=== PATIENT | female | born 1995 | race American Indian/Alaskan Native ===

== ENCOUNTER 2016-11-09 07:50 | Emergency (ER) | payer BC ==
[2016-11-09] MEDS ORDERED: NORCO 5/325 PO ONE (09:28)
[2016-11-09 10:00] LABS: Basophils % (Auto) 0.4 % (0.0-1.8); Eosinophils % (Auto) 1.1 % (0.0-4.3); Hematocrit 40.9 % (30.3-42.9); Hemoglobin 13.7 gm/dl (10.1-14.3); Mean Corpuscular HGB Conc 34 % (30-34); Mean Corpuscular Hemoglobin 30 pg (28-32); Mean Corpuscular Volume 89 fl (79-97); Platelet Count 292 K/mm3 (140-440); Red Blood Count 4.58 M/mm3 (3.65-5.03); Red Cell Distribution Width 13.4 % (13.2-15.2); White Blood Count 8.8 K/mm3 (4.5-11.0)
[2016-11-09 10:16] LABS: Alanine Aminotransferase 181 units/L (7-56); Albumin 3.7 g/dL (3.9-5); Alkaline Phosphatase 64 units/L (35-129); Anion Gap 16 mmol/L; Bilirubin,Total 0.5 mg/dL (0.1-1.2); Blood Urea Nitrogen 10 mg/dL (7-17); Calcium 8.7 mg/dL (8.4-10.2); Carbon Dioxide 26 mmol/L (22-30); Chloride 96.8 mmol/L (98-107); Glucose 101 mg/dL (65-100); Potassium 4.3 mmol/L (3.6-5.0); Sodium 134 mmol/L (137-145); Total Protein 7.4 g/dL (6.3-8.2)
[2016-11-09 10:56] LABS: Bacteria,Urine 1+ /HPF (Negative); Bilirubin,Urine NEG (Negative); Blood,Urine LG (Negative); Ketones,Urine NEG (Negative); Leukocyte Esterase,Urine NEG (Negative); Nitrite,Urine NEG (Negative); Urobilinogen,Urine < 2.0 mg/dL (<2.0)
[2016-11-09 12:03] LABS: Creatine Kinase 40399 units/L (30-135)
--- NOTE | 2016-11-09 12:06 | Emergency Department Report ---
Upper Extremity - HPI Chief Complaint: Pain General Stated Complaint: MUSCLE ACHE/WHOLE BODY/JAW LOCKED Time Seen by Provider: 11/09/16 09:09 Upper Extremity: Left Arm, Right Arm Occurred When: >5 Days Mechanism: Unsure Severity: severe Symptoms: Yes Pain with Movement, Yes Swelling, No Deformity, No Limited Range of Movement, No Numbness, No Weakness, No Bruising/Ecchymosis, No Laceration or Abrasion Other History: Patient is a 21-year-old female presents due to bilateral arm pain 6 days. Patient states that the pain started on her neck moving down to her arms and now her right leg. Patient states that the pain is worse on her right forearm. Patient denies any injury to her right forearm, she states the she works out, last time she worked out was 10 days ago. Patient denies any long distance traveling, she denies any history of DVTs. Patient has any past medical history and denies any known drug allergies. Patient states that she was recently diagnosed with a UTI 4 days ago and is currently taking Macrobid. ED Review of Systems ROS: Stated complaint: MUSCLE ACHE/WHOLE BODY/JAW LOCKED Other details as noted in HPI Comment: All other systems reviewed and negative Constitutional: no symptoms reported Respiratory: no symptoms reported. denies: cough, orthopnea, shortness of breath, SOB with exertion, SOB at rest, stridor, wheezing ED Past Medical Hx - Past Medical History Previous Medical History?: No - Surgical History Past Surgical History?: No - Social History Smoking Status: Never Smoker Substance Use Type: Alcohol, Marijuana Upper Extremity Exam - Exam General: Vital signs noted. No distress. Alert and acting appropriately. Head and Torso: No HEENT Abnormality, No Neck Tenderness, No Chest/Lungs Abnormality, No Abdominal Tenderness, No Back Tenderness Shoulder Exam: Yes Normal Range of Motion in Shoulder, No Shoulder Tenderness, No Clavicle Tenderness, No Shoulder Deformity, No AC Joint Tenderness Arm Exam: No Arm/Humerus Tenderness, No Arm Deformity Elbow: Yes Normal Range of Motion in Elbow, No Elbow Tenderness, No Elbow Deformity Forearm: Yes Forearm Tenderness (patient had severe tenderness to the right forearm, mild tenderness on the left, left foream is firm, no erythema. ), Yes Forearm Deformity, Yes Pain with Pronation, Yes Pain with Supination Wrist: Yes Wrist Tenderness, No Normal ROM in Wrist, No Wrist Deformity, No Snuffbox Tenderness, No Pain with Axial Thumb Compression Hand: Yes Digit Tenderness, No Hand Tenderness, No Hand Deformity, No Normal ROM in Digit(s), No Digit(s) Deformity, No Tendon Dysfunction CMS Exam: Yes Normal Distal Pulses, Yes Normal Capillary Refill, Yes Normal Distal Sensation, No Broken Skin ED Course Vital Signs 11/09/16 08:16 Temperature 98.7 F Pulse Rate 68 Respiratory 18 Rate Blood Pressure 117/74 O2 Sat by Pulse 100 Oximetry - Reevaluation(s) Reevaluation #1: States she still having arm pain after she was given a Lortab, normal saline bolus was ordered due to CPK of 4000 was reported from the lab. patient's lab results were discussed with Dr. Muñoz who stated that she will, and evaluated patient. 11/09/16 12:05 ED Medical Decision Making - Lab Data Result diagrams: 11/09/16 09:35 11/09/16 09:35 - Radiology Data Radiology results: report reviewed, image reviewed X-ray of the bilateral forearms shows no acute osseous finding - Medical Decision Making Patient was in no acute distress in the ER, vital signs within normal limits. CPK was 40,933, creatinine 0.8. Patient had severe tenderness of her right forearm, mild edema and right forearm is firm to touch. 2 + right and left radial pulse. Patient was given normal saline 1 L bolus in the ER and a second liter was ordered Dr. Muñoz came and evaluated patient and stated that patient needed to be transferred to [facility] due to compartment syndrome. Dr. Briceño with orthopedics agreed to accept patient and patient can be received at the [facility]. - Differential Diagnosis rhabdomyolysis, compartment syndrome, forearm fracture Critical care attestation.: If time is entered above; I have spent that time in minutes in the direct care of this critically ill patient, excluding procedure time. ED Disposition Clinical Impression: Compartment syndrome of forearm Rhabdomyolysis Qualifiers: Rhabdomyolysis type: non-traumatic Qualified Code(s): M62.82 - Rhabdomyolysis Disposition: DC/TX ANOTHER TYPE HEALTHCARE Is pt being admited?: No Does the pt Need Aspirin: No Condition: Good Time of Disposition: 13:58
[2016-11-09] MEDS ORDERED: NACL 0.9% 1000 ML 1,000 ML IV ONE ×2 (12:28→13:19)
[2016-11-09 13:05] VITALS: BP 109/69
--- NOTE | 2016-11-09 13:50 | XRay Report ---
BILATERAL FOREARM, 2 VIEWS History: Bilateral forearm pain. Findings: Normal bone mineralization. No acute osseous findings or joint pathology is appreciated. Impression: Unremarkable bilateral forearms.
--- NOTE | 2016-11-09 15:31 | Emergency Department Report ---
Blank Doc - Documentation Documentation: Asked to evaluate the patient by the mid-level. Patient states she has been lifting weights and on Friday of last week lifting at 210 pounds of weights. Patient states prior to lifting this weight she was only lifting 175. Patient denies any injury at the time of lifting the weights but since then has noticed increasing pain and swelling to both forearms especially her right forearm. Patient states she cannot fully extend her fingers on either hand without pain right greater than left. Patient denies numbness but states every once in a while she feels some tingling in the tips of her fingers. On physical exam patient has bounding radial pulses and good sensation. Her right forearm is swollen and slightly tense and tender to palpation. Patient has significant pain to her right forearm with passive extension of her fingers. I find these findings concerning for early compartment syndrome and patient was transferred to [facility] for further evaluation.
== END 2016-11-09 15:30 | disposition other institution (70) ==
LOC: ED 07:50
DX: T79.A12A Traumatic compartment syndrome of left upper extremity, initial encounter (principal); T79.A11A Traumatic compartment syndrome of right upper extremity, initial encounter; M62.82 Rhabdomyolysis; F12.10 Cannabis abuse, uncomplicated; X58.XXXA Exposure to other specified factors, initial encounter
CPT/HCPCS: 36415; 73090; 80053; 81001; 81025; 82550; 85025; 86140; 96360; 96361; 99285; J7030